=== PATIENT | male | born 1960 | race Caucasian/White ===

== ENCOUNTER → 2018-02-12 | Outpatient (CLI) | payer BC ==
[~2018-02-12] MED LIST: DOCU-416 PO; ETAN50DI5 SQ; FOLI-68 PO; HYDR-67 PO; LANS30TA12 PO; MIRT-17 PO; MONT10TA PO; NAPR-1043 PO; NO CURRENT MEDS; PRED20TA6 PO; SULF500T48 PO; VITA1CAP46 PO; [UNRECOGNIZED DRUG - CODE] PO
--- NOTE | 2018-02-12 12:46 | RADIOLOGY IMAGING REPORT ---
FACILITY: [facility] PATIENT NAME: Marco Richards : 1960 MR: [id number] V: [id number] EXAM DATE: ORDERING PHYSICIAN: SILVIO MCNEIL TECHNOLOGIST: Location: [facility] [place] Patient: Marco Richards : 1960 Visit/Account:[id number] Date of Sevice: 02/12/2018 Right hand, three views, and left hand, three views. HISTORY: Rheumatoid arthritis. COMPARISON: 02/01/2016. Tiny periarticular erosions without joint space narrowing are present in a few metacarpal phalangeal joints bilaterally, minimally increased compared to previous. The bones, joints, and soft tissues ar e otherwise unremarkable bilaterally. No periarticular osteoporosis. No ulnar deviations. IMPRESSION: Minimal bilateral polyarticular arthropathy consistent with rheumatoid arthritis. Report Dictated By: Siddharth Redmond MD at 02/12/2018 12:37 PM Report E-Signed By: Siddharth Redmond MD at 02/12/2018 12:42 PM WSN:[id number]
== END ==
LOC: RAD 11:14
PROVIDERS: ATTEND Physician Assistant Medical
DX: M06.842 Other specified rheumatoid arthritis, left hand (principal); M06.841 Other specified rheumatoid arthritis, right hand

== ENCOUNTER → 2018-10-24 | Outpatient (CLI) | payer BC ==
--- NOTE | 2018-10-24 17:31 | RADIOLOGY IMAGING REPORT ---
FACILITY: [facility] - [place] PATIENT NAME: Marco Richards : 1960 MR: [id number] V: [id number] EXAM DATE: ORDERING PHYSICIAN: SILVIO MCNEIL TECHNOLOGIST: Location: [facility] Patient: Marco Richards : 1960 Visit/Account:[id number] Date of Sevice: 10/24/2018 CHEST PA LAT INDICATION: Abnormal TB test COMPARISON: None available FINDINGS: Heart size within normal limits. There is no focal infiltrate or lobar consolidation. There is no evidence of TB. There is no pneumothorax or pleural effusion. IMPRESSION: 1. No acute cardiopulmonary process. No evidence of TB Report Dictated By: Nathan Davis at 10/24/2018 5:26 PM Report E-Signed By: Nathan Davis at 10/24/2018 5:26 PM WSN:[id number]
== END ==
LOC: RAD 15:23
PROVIDERS: ATTEND Physician Assistant Medical
DX: R05 Cough (principal); Z79.899 Other long term (current) drug therapy
CPT/HCPCS: 71046

== ENCOUNTER → 2019-02-18 | Outpatient (CLI) | payer BC ==
[~2019-02-18] MED LIST changes: -HYDR-67 PO; +[UNRECOGNIZED DRUG - CODE] PO
--- NOTE | 2019-02-18 15:54 | RADIOLOGY IMAGING REPORT ---
FACILITY: [facility] PATIENT NAME: Marco Richards : 1960 MR: [id number] V: [id number] EXAM DATE: ORDERING PHYSICIAN: SILVIO MCNEIL TECHNOLOGIST: Location: [facility] Patient: Marco Richards : 1960 Visit/Account:[id number] Date of Sevice: 02/18/2019 4 views left hand and 4 views right hand Indication: Rheumatoid arthritis. Comparison: 02/12/2018 Findings: Left hand: 4 views of the left hand demonstrate no acute fracture or dislocation. No joint centered erosions are identified. Mild soft tissue swelling is suggested about the PIP joints of the index and long finger s. Joint spaces are maintained. Metacarpal heads are unremarkable on the ball catcher view. Right hand: 4 views of the right hand demonstrate no acute fracture or dislocation. No joint centered erosions. M ild soft tissue swelling suggested about the PIP joint of the long finger and the DIP joint of index finger. Correlate clinically. No underlying joint centered abnormality is seen. Impression: 1. No fracture, dislocation or joint centered erosions of the bilateral hands. 2. Mild soft tissue swelling involving the left and right index and long fingers as reported above. C orrelate with physical exam. Report Dictated By: Sandeep Shook at 02/18/2019 3:42 PM Report E-Signed By: Sandeep Shook at 02/18/2019 3:49 PM WSN:[id number]
== END ==
LOC: RAD 14:38
PROVIDERS: ATTEND Physician Assistant Medical
DX: M05.89 Other rheumatoid arthritis with rheumatoid factor of multiple sites (principal)

== ENCOUNTER → 2019-03-03 | Outpatient (CLI) | payer BC | LOC: RESP 01:04 | PROVIDERS: ATTEND Internal Medicine | DX: J98.4 Other disorders of lung (principal) | CPT/HCPCS: 94060; 94726; 94729 ==

== ENCOUNTER → 2019-04-16 | Outpatient (CLI) | payer BC ==
--- NOTE | 2019-04-16 15:37 | RADIOLOGY IMAGING REPORT ---
FACILITY: [facility] PATIENT NAME: Marco Richards : 1960 MR: [id number] V: [id number] EXAM DATE: ORDERING PHYSICIAN: SOFIA HO TECHNOLOGIST: Location: [facility] - [place] Patient: Marco Richards : 1960 Visit/Account:[id number] Date of Sevice: 04/16/2019 CT CHEST W/O CONTRAST HISTORY: Interstitial lung disease; rheumatoid lung disease. TECHNIQUE: CT chest without intravenous contrast. One of the following dose optimization techniques was utilized in the performance of this exam: Autom ated exposure control; adjustment of the mA and/or kV according to the patient's size; or use of an i terative reconstruction technique. Specific details can be referenced in the facility's radiology C T exam operational policy. CONTRAST: None. COMPARISON: 12/27/2014 FINDINGS: Heart/vessels: Atherosclerotic calcifications aorta and its branch vessels including coronary arteri es. Main pulmonary artery enlarged suggesting pulmonary hypertension. Mediastinum: Negative. Lymph nodes: Left axillary and mediastinal adenopathy. Largest and/or most discrete nodes 1.4 x 1.4 cm left axilla (14; previously 1.1 x 1.4 cm), adjacent to ascending aorta 1.7 x 2.6 cm (38; previ ously 1.0 x 1.3 cm) and subcarinal 1.0 x 2.5 cm (48; previously 0.7 x 1.9 cm). Lungs/pleura: Mild mucus debris within trachea and left mainstem bronchus. Central airways otherwise normal caliber and grossly clear. Lungs normally inflated without gross evidence of air trapping. No bronchiectasis but mild peripheral bronchiolectasis. No gross bronchial wall thickening. Stable appe aring left apical pleural parenchymal scarring, nodularity along the anterior aspects right minor fis sure and at posterior lateral right lung base. No new or enlarging pulmonary nodule. No emphysema. Sm all benign-appearing air cyst caudal right middle lobe (). Lower lung zone predominant predominan tly peripheral reticulation with mild associated groundglass infiltrate. Overall, findings are only s lightly worsened from 2015 prior exam. Visualized upper abdomen: Splenomegaly, worsened from prior exam now with a greatest transaxial dime nsion is 17.0 cm (previously 15.4 cm). Bones/soft tissues: Several punctate sclerotic foci within left glenoid bilateral humeral heads cons istent with bone islands. Minimal disc degenerative degenerative changes thoracic spine. IMPRESSION: 1. Interstitial lung disease detailed above and according to Fleischner Society guidelines, consisten t with a probable usual interstitial pneumonia (UIP) type pattern. When compared to prior exam of 12/06, findings are only slightly worsened. 2. New versus worsened but nonspecific left axillary mediastinal adenopathy as well as splenomegaly. Correlation with any clinical or laboratory findings of suspicion for lymphoproliferative disorder greene ggested. As warranted, ultrasound-guided tissue sampling of a left axillary node could be performed. 3. Other chronic and/or benign-appearing changes detailed above. Report Dictated By: Rufino Hernandez MD at 04/16/2019 2:57 PM Report E-Signed By: Rufino Hernandez MD at 04/16/2019 3:28 PM WSN:[id number]
== END ==
LOC: CT 00:38
PROVIDERS: ATTEND Internal Medicine
DX: M05.10 Rheumatoid lung disease with rheumatoid arthritis of unspecified site (principal)
CPT/HCPCS: 71250